=== PATIENT | female | born 1975 | race Caucasian/White ===

== ENCOUNTER → 2024-06-25 | Day surgery (SDC) | payer OTHER ==
[~2024-06-25] MED LIST: HYOSCYAMINE SULFATE 0.5 MG/ML INJ ONE; LIDOCAINE HCL 2% LOCAL INJ 5 ML SDV VIAL INJ ONE; METOCLOPRAMIDE HCL 10 MG/2ML VIAL ONE; PROPOFOL IV EMULSION 10 MG/ML 20 ML VIAL ONE; PROPOFOL IV EMULSION 50 ML IV ONE
[2024-06-25] MEDS: LACTATED RINGER'S 1,000 ML ONE (09:33)
[2024-06-25 12:01] VITALS: TEMP 97.7
[2024-06-25 12:30] VITALS: BP 115/68; PULSE 88; RESP 16; O2SAT 99
== END | disposition home or self-care (01) ==
LOC: OR 07:36
PROVIDERS: ATTEND Internal Medicine Gastroenterology
DX: Z12.11 Encounter for screening for malignant neoplasm of colon (principal); K29.60 Other gastritis without bleeding; K29.80 Duodenitis without bleeding; K20.90 Esophagitis, unspecified without bleeding; K21.9 Gastro-esophageal reflux disease without esophagitis; K44.9 Diaphragmatic hernia without obstruction or gangrene; K59.04 Chronic idiopathic constipation; K64.8 Other hemorrhoids; E66.01 Morbid (severe) obesity due to excess calories; K80.20 Calculus of gallbladder without cholecystitis without obstruction; Z68.34 Body mass index [BMI] 34.0-34.9, adult
CPT/HCPCS: 43239; 45378; 81025; J1980; J2003; J2470; J2704; J2765; J7121